=== PATIENT | female | born 1995 | race Caucasian/White ===

== ENCOUNTER 2019-01-28 00:58 | Emergency (ER) | payer MEDICAID ==
[~2019-01-28] VITALS: Ht 144.8 cm; Wt 38.1 kg
[2019-01-28] MEDS ORDERED: ACETAMINOPHEN ES 500 MG TABLET ONE (02:15)
[2019-01-28 02:28] LABS: BASOPHILS % (AUTO) 0.1 % (0.0-2.0); EOSINOPHILS % (AUTO) 0.3 % (0.0-6.0); HEMATOCRIT 39 % (33-45); HEMOGLOBIN 12.7 g/dL (11.5-14.8); LYMPHOCYTES # (AUTO) 0.9 /CMM (0.8-4.8); LYMPHOCYTES % (AUTO) 4.3 % (20.0-44.0); MEAN CORPUSCULAR HGB CONC 33 g/dl (31.0-36.0); MEAN CORPUSCULAR VOLUME 84 fL (82-100); NEUTROPHILS # (AUTO) 18.8 /CMM (1.8-8.9); NEUTROPHILS % (AUTO) 90.3 % (43.0-81.0); PLATELET COUNT (AUTO) 240 /CMM (150-450); RED BLOOD CELL COUNT(AUTO) 4.63 MIL/uL (4.0-5.2); WHITE BLOOD COUNT (AUTO) 20.8 K/uL (4.3-11.0)
[2019-01-28] MEDS ORDERED: IV NS 0.9% 1,000 ML BAG IV ONE (02:30)
[2019-01-28] MEDS ORDERED: ACETAMINOPHEN ES 500 MG TABLET PO ONE (02:30)
--- NOTE | 2019-01-28 02:31 | NUR ---
BIBS. C/O "BEEN HAVING FEVERSINCE YESTERDAY, TOOK NYQUIL AND DIDNT HELP" -SOB NOTED. +COUGH. AOX4.AMBULATORY VSS
[2019-01-28 02:38] LABS: CALCIUM, SERUM 8.4 mg/dL (8.5-10.1); CARBON DIOXIDE 24 mmol/L (21-32); CHLORIDE 101 mmol/L (98-107); CREATININE 0.8 mg/dL (0.6-1.3); GLUCOSE 85 mg/dL (74-106); POTASSIUM 3.1 mmol/L (3.5-5.1); SODIUM SERUM 137 mmol/L (136-145); UREA NITROGEN, BLOOD 12 mg/dL (7-18)
[2019-01-28 02:44] LABS: ALANINE AMINOTRANSFERASE < 6 U/L (12-78); ALBUMIN 3.8 g/dL (3.4-5.0); ALKALINE PHOSPHATASE 82 U/L (46-116); ASPARTATE AMINOTRANSFERASE 14 U/L (15-37); BILIRUBIN,DIRECT 0.1 mg/dL (0.0-0.2); BILIRUBIN,TOTAL 0.5 mg/dL (0.2-1.0); TOTAL PROTEIN, SERUM 7.7 g/dL (6.4-8.2)
[2019-01-28 02:47] LABS: APPEARANCE,URINE CLEAR (CLEAR); BILIRUBIN,URINE NEGATIVE (NEGATIVE); BLOOD, URINE 1+ Ery/uL (NEGATIVE); COLOR,URINE YELLOW (YELLOW); KETONES,URINE 3+ (NEGATIVE); LEUKOCYTE ESTERASE ,URINE NEGATIVE (NEGATIVE); NITRITE, URINE NEGATIVE (NEGATIVE); PROTEIN,URINE NEGATIVE (NEGATIVE); UGLUCOSE NEGATIVE (NEGATIVE); UROBILINOGEN,URINE 0.2 EU/dL (0.2)
[2019-01-28 03:38] LABS: BACTERIA,URINE Few /HPF (None Seen); SQUAMOUS EPITHELIAL CELL,UR Few /HPF (None Seen)
[2019-01-28 04:42] VITALS: BP 94/62
== END 2019-01-28 04:42 | disposition home or self-care (01) ==
LOC: ER 01:02
DX: J40 Bronchitis, not specified as acute or chronic (principal)
CPT/HCPCS: 36415; 71045; 80048; 80076; 81001; 83605; 84484; 84703; 85025; 85730; 87040 ×2; 87086; 93005; 99284; J7030; J7050; 81000-TC

== ENCOUNTER 2019-07-20 11:27 | Emergency (ER) | payer OTHER ==
[~2019-07-20] VITALS: Ht 142.2 cm; Wt 38.6 kg
[2019-07-20 11:37] VITALS: BP 110/73
== END 2019-07-20 12:26 | disposition home or self-care (01) ==
LOC: ER 11:27
DX: J40 Bronchitis, not specified as acute or chronic (principal)

== ENCOUNTER 2022-06-19 13:24 | Emergency (ER) | payer BC, MEDICAID, OTHER ==
[~2022-06-19] VITALS: Ht 147.3 cm; Wt 43.5 kg
[2022-06-19 14:26] VITALS: BP 114/63
--- NOTE | 2022-06-19 14:26 | NUR ---
BIBS W/ C/P COUGH AND CONGESTION, HEADACHE AND FEVER X 2 DAYS. TO ER BED 16.
--- NOTE | 2022-06-19 14:45 | NUR ---
PT SEEN BY MD AT BEDSIDE
[2022-06-19] MEDS ORDERED: PROM118S5 PO (15:50)
--- NOTE | 2022-06-19 17:10 | NUR ---
Patient discharged to home in stable condition. Written and verbal after care instructions given. Patient verbalizes understanding of instruction.
== END 2022-06-19 17:20 | disposition home or self-care (01) ==
LOC: ER 13:30
DX: J11.1 Influenza due to unidentified influenza virus with other respiratory manifestations (principal); Z79.899 Other long term (current) drug therapy

== ENCOUNTER 2022-08-21 21:26 | Emergency (ER) | payer BC ==
[~2022-08-21 21:26] MED LIST: PROM118S5 PO
--- NOTE | 2022-08-21 22:17 | NUR ---
CALLED FOR TRIAGE, NO ANSWER
--- NOTE | 2022-08-21 23:16 | NUR ---
CALLED FOR TRIAGE, NO ANSWER
== END 2022-08-21 23:20 | disposition left against medical advice (07) ==
LOC: ER 21:27
DX: Z53.21 Procedure and treatment not carried out due to patient leaving prior to being seen by health care provider (principal)

== ENCOUNTER 2024-04-30 10:49 | Emergency (ER) | payer BC ==
[~2024-04-30] VITALS: Ht 160 cm; Wt 43.1 kg
[2024-04-30 11:00] VITALS: BP 117/74; TEMP 98.1
[2024-04-30] MEDS ORDERED: IBUP-1953 PO (11:11)
[2024-04-30 12:09] VITALS: O2SAT 98
== END 2024-04-30 11:33 | disposition home or self-care (01) ==
LOC: ER 10:54
DX: S40.021A Contusion of right upper arm, initial encounter (principal); S50.311A Abrasion of right elbow, initial encounter; W01.0XXA Fall on same level from slipping, tripping and stumbling without subsequent striking against object, initial encounter; Y93.89 Activity, other specified; Y92.89 Other specified places as the place of occurrence of the external cause; Y99.8 Other external cause status

== ENCOUNTER 2024-10-19 01:40 | Emergency (ER) | payer BC ==
[~2024-10-19] VITALS: Ht 160 cm; Wt 46.7 kg
[~2024-10-19 01:40] MED LIST changes: +IBUP-1953 PO
[2024-10-19] MEDS ORDERED: METOCLOPRAMIDE HCL 10 MG/2 ML VIAL ONE (02:00)
[2024-10-19] MEDS ORDERED: ONDANSETRON HCL/PF 4 MG/2 ML VIAL ONE (02:00)
[2024-10-19] MEDS: IV NS 0.9% 1,000 ML BAG IV ONE (02:06)
[2024-10-19] MEDS: METOCLOPRAMIDE HCL 10 MG/2 ML VIAL IV ONE (02:08)
[2024-10-19] MEDS: ONDANSETRON HCL/PF - ER 4 MG/2 ML VIAL IV ONE (02:08)
[2024-10-19 02:14] LABS: BASOPHILS # (AUTO) 0.1 K/uL (0.0-0.2); BASOPHILS % (AUTO) 0.5 % (0.0-2.0); EOSINOPHILS % (AUTO) 0.1 % (0.0-6.0); HEMATOCRIT 40 % (33-45); HEMOGLOBIN 13.3 g/dL (11.5-14.8); LYMPHOCYTES # (AUTO) 1.1 K/uL (0.8-4.8); LYMPHOCYTES % (AUTO) 9.9 % (20.0-44.0); MEAN CORPUSCULAR HEMOGLOBIN 27 PG (26.0-33.0); MEAN CORPUSCULAR HGB CONC 33 g/dl (31.0-36.0); MEAN CORPUSCULAR VOLUME 81 fL (82-100); MONOCYTES # (AUTO) 0.2 K/uL (0.1-1.30); MONOCYTES % (AUTO) 1.6 % (2.0-12.0); NEUTROPHILS # (AUTO) 9.7 K/uL (1.8-8.9); NEUTROPHILS % (AUTO) 87.9 % (43.0-81.0); PLATELET COUNT (AUTO) 399 K/uL (150-450); RED BLOOD CELL COUNT(AUTO) 4.96 MIL/uL (4.0-5.2); RED CELL DISTRIBUTION WIDTH 15.7 % (11.5-15.0); WHITE BLOOD COUNT (AUTO) 11.1 K/uL (4.3-11.0)
[2024-10-19] MEDS ORDERED: MORPHINE SULFATE INJ 4 MG/ML DISP.SYRIN ONE (02:24)
[2024-10-19 02:33] LABS: ALBUMIN 4.6 g/dL (3.4-5.0); BILIRUBIN,DIRECT 0.1 mg/dL (0.0-0.2); BILIRUBIN,TOTAL 0.6 mg/dL (0.2-1.0); CALCIUM, SERUM 9.6 mg/dL (8.5-10.1); CREATININE 0.8 mg/dL (0.6-1.3); POTASSIUM 3.7 mmol/L (3.5-5.1); TOTAL PROTEIN, SERUM 8.5 g/dL (6.4-8.2)
[2024-10-19] MEDS: MORPHINE SULFATE INJ 2 MG/ML DISP.SYRIN IV ONE (02:34)
[2024-10-19 03:12] LABS: APPEARANCE,URINE CLEAR (CLEAR); BILIRUBIN,URINE NEGATIVE (NEGATIVE); BLOOD, URINE NEGATIVE Ery/uL (NEGATIVE); COLOR,URINE YELLOW (YELLOW); KETONES,URINE 2+ mg/dL (NEGATIVE); LEUKOCYTE ESTERASE ,URINE NEGATIVE (NEGATIVE); NITRITE, URINE NEGATIVE (NEGATIVE); PROTEIN,URINE 1+ mg/dl (NEGATIVE); UGLUCOSE NEGATIVE (NEGATIVE); UROBILINOGEN,URINE 0.2 EU/dL (0.2)
[2024-10-19 03:14] LABS: PREGNANCY TEST URINE QUAL NEGATIVE (NEGATIVE); RBC,URINE 0-2 /HPF (0-2)
[2024-10-19 03:15] LABS: ADD URINE CULTURE NO; BACTERIA,URINE Rare /HPF (None Seen); SQUAMOUS EPITHELIAL CELL,UR Few /HPF (None Seen); WBC,URINE 0-2 /HPF (0-3)
[2024-10-19 03:40] LABS: AMPHETAMINE, URINE NEGATIVE (NEGATIVE); BARBITURATE, URINE NEGATIVE (NEGATIVE); BENZODIAZEPINE, URINE NEGATIVE (NEGATIVE); CANNABINOID, URINE NEGATIVE (NEGATIVE); COCCAINE, URINE NEGATIVE (NEGATIVE); OPIATE, URINE POSITIVE (NEGATIVE); PHENCYCLIDINE SCREEN,URINE NEGATIVE (NEGATIVE)
[2024-10-19 03:49] LABS: ALCOHOL, BLOOD < 3 mg/dL (0-10); SALICYLATE 0.6 mg/dL (2.8-20.0)
[2024-10-19] MEDS ORDERED: ACETYLCYSTEINE IV 6,000 MG/30 ML VIAL IV ONE (04:26)
[2024-10-19 09:48] VITALS: BP 106/72; TEMP 98.3; O2SAT 98
== END 2024-10-19 09:49 | disposition short-term general hospital (02) ==
LOC: ER 01:42
DX: T39.1X1A Poisoning by 4-Aminophenol derivatives, accidental (unintentional), initial encounter (principal); R10.13 Epigastric pain; R11.2 Nausea with vomiting, unspecified; Z79.899 Other long term (current) drug therapy; Y92.9 Unspecified place or not applicable; Z20.822 Contact with and (suspected) exposure to COVID-19
CPT/HCPCS: 99291; 96365; 96361; 96366; 96375; 76705; 85025; 80048; 83690; 80076; 84703; 81001; 36415; 87426; 80143; 80320; 80307; J2270; J2765; J2405 ×2; J7060; J0132; A4223 ×2; G0480